=== PATIENT | female | born 1980 | race Caucasian/White ===

== ENCOUNTER 2017-12-19 14:51 | Emergency (ER) | payer BC ==
--- NOTE | 2017-12-19 15:23 | Emergency Department Record ---
History of Present Illness - General Chief Complaint: Abdominal Pain Stated Complaint: HERNIA LT SIDE Time Seen by Provider: 12/19/17 15:10 Source: Patient, Family Mode of Arrival: Ambulatory Limitations: No limitations - History of Present Illness Initial Comments: 37 yo female presents with abdominal pain this is now resolved. She had a midline mass that she identifies as a hernia. She has had this occur a few times over the last 1.5 years. She has not been worked up or seen for this in the past. She has had a partial hysterectomy and cholecystectomy in the past. No vomiting. No fever. MD Complaint: Abdominal pain Onset/Timin -: Hour(s) Location: LLQ Radiation: None Migration to: No migration Severity: Mild Consistency: Constant Improves With: Other Worsens With: Movement Associated Symptoms: Denies other symptoms - Related Data LMP (females 10-50): other Patient : No Home Medications Medication Instructions Recorded Confirmed Last Taken Multivitamin [Multi-Vitamin Daily] 1 each PO DAILY 12/19/17 12/19/17 12/19/17 Allergies Allergy/AdvReac Type Severity Reaction Status Date / Time No Known Drug Allergies Allergy Verified 12/19/17 15:01 Travel Screening - Travel/Exposure Within Last 30 Days Have you traveled within the last 30 days?: No Review of Systems Constitutional: Denies: Chills, Fever, Malaise, Weakness Eyes: Denies: Eye discharge ENT: Denies: Congestion, Throat pain Respiratory: Denies: Cough Cardiovascular: Denies: Chest pain, Palpitations, Syncope Endocrine: Denies: Fatigue Gastrointestinal: Reports: Abdominal pain. Denies: Diarrhea, Nausea, Vomiting Genitourinary: Denies: Dysuria, Urgency Musculoskeletal: Denies: Arthralgia, Back pain, Myalgia Skin: Denies: Bruising, Change in color, Rash Neurological: Denies: Headache, Numbness, Weakness Psychiatric: Denies: Anxiety Hematological/Lymphatic: Denies: Easy bleeding, Easy bruising, Swollen glands Past Medical History - SOCIAL HISTORY Smoking Status: Light tobacco smoker (<10/day) Alcohol Use: None Drug Use: None - RESPIRATORY Hx Respiratory Disorders: No - CARDIOVASCULAR Hx Cardio Disorders: No - NEURO Hx Neuro Disorders: No - GI Hx GI Disorders: No - Hx Genitourinary Disorders: No - ENDOCRINE Hx Endocrine Disorders: No - MUSCULOSKELETAL Hx Musculoskeletal Disorders: No - PSYCH Hx Psych Problems: No - HEMATOLOGY/ONCOLOGY Hx Hematology/Oncology Disorders: No Family Medical History Any Significant Family History?: Yes Hx Diabetes: Father, Grandparents Hx HTN: Mother Physical Exam - General General Appearance: Alert, Oriented x3, Cooperative, No acute distress Limitations: No limitations - Head Head exam: Normal inspection - Eye Eye exam: Normal appearance - ENT ENT exam: Normal exam Ear exam: Normal external inspection Nasal Exam: Normal inspection Mouth exam: Normal external inspection - Neck Neck exam: Normal inspection, Full ROM. negative: Tenderness - Respiratory Respiratory exam: Normal lung sounds bilaterally. negative: Respiratory distress - Cardiovascular Cardiovascular Exam: Regular rate, Normal rhythm, Normal heart sounds - GI/Abdominal GI/Abdominal exam: Soft, Tenderness (mild midline tenderness). negative: Distended, Guarding, Hernia (No palpable hernia), Rebound, Rigid - Rectal Rectal exam: Deferred - exam: Deferred - Extremities Extremities exam: Normal inspection - Back Back exam: Denies: CVA tenderness (R), CVA tenderness (L) - Neurological Neurological exam: Alert, Oriented X3 - Psychiatric Psychiatric exam: Normal affect, Normal mood - Skin Skin exam: Dry, Intact, Normal color, Warm Course Vital Signs 12/19/17 15:03 Temperature 98.2 F Pulse Rate 86 Respiratory 20 Rate Blood Pressure 126/68 Pulse Ox 99 - Reevaluation(s) Reevaluation #1: The CMP was reviewed No acute changes 12/19/17 16:07 CBC with WBC count of 14 UA is negative 12/19/17 16:49 The patient has returned from CT 12/19/17 17:[address] was reviewed. NO hernia. Small ovarian cysts that will need follow up US and adrenal nodules. The patient was informed of the need to for follow up Medical Decision Making - Lab Data Result diagrams: 12/19/17 15:20 12/19/17 15:20 Disposition Disposition: Discharge Clinical Impression: Hernia Disposition: Home, Self-Care Condition: (1) Good Instructions: Abdominal Pain (ED), Ventral Hernia (ED) Additional Instructions: Call for close follow up with Dr Boston You have been referred to the specialty surgery clinic Return if you have any abdominal pain that does not go away in less than 30 minutes Return if you have a hernia you can not press back in place. Follow up the CT scan results with your doctor. You will need to have the ovarian cysts rechecked and the adrenal gland nodules. Referrals: Addi Boston [DOCTOR OF OSTEOPATH] - [facility] [Provider Group] Forms: Patient Portal Access Time of Disposition: 17:20 Quality - Quality Measures Quality Measures: N/A - Blood Pressure Screening Does Patient Have Any of the Following: No Blood Pressure Classification: Pre-Hypertensive BP Reading Systolic Measurement: 126 Diastolic Measurement: 68 Screening for High Blood Pressure: < Pre-Hypertensive BP, F/U Documented > [ G8950] Pre-Hypertensive Follow-up Interventions: Referral to alternative/primary care provider.
[2017-12-19 15:42] LABS: HCG,QUALITATIVE URINE NEGATIVE (NEGATIVE)
[2017-12-19 15:44] LABS: BLOOD UREA NITROGEN 10 mg/dL (6-20); CREATININE 0.7 mg/dL (0.5-0.9); EST GLOMERULAR FILTRATION RATE > 60 mL/min
[2017-12-19 15:45] LABS: TOTAL PROTEIN 7.4 g/dL (6.6-8.7); URINE APPEARANCE CLEAR; URINE BILIRUBIN NEGATIVE (NEGATIVE); URINE BLOOD NEGATIVE (NEGATIVE); URINE COLOR YELLOW; URINE GLUCOSE (UA) NEGATIVE (NEGATIVE); URINE KETONE NEGATIVE (NEGATIVE); URINE LEUKOCYTE ESTERASE NEGATIVE (NEGATIVE); URINE NITRITE NEGATIVE (NEGATIVE); URINE PROTEIN NEGATIVE (NEGATIVE); URINE UROBILINOGEN 0.2 E.U./dL (0.20 - 1.00)
[2017-12-19 15:47] LABS: GLUCOSE,RANDOM 104 mg/dL (74-109)
[2017-12-19 15:48] LABS: BASO % 0.2 % (0-6); EOS % 1.1 % (0-6); GRAN % 73.2 % (47-80); HEMATOCRIT 43.8 % (35.0-47.0); HEMOGLOBIN 14.2 gm/dl (11.6-16.0); LYMPH % 18.1 % (16-45); MEAN CELL VOLUME 93.6 fl (81-97); MEAN CORPUSCULAR HEMOGLOBIN 30.3 pg (27-33); MEAN CORPUSCULAR HGB CONC 32.4 g/dl (32-36); MEAN PLATELET VOLUME 9.4 fl (7.4-10.4); MONO % 7.4 % (0-9); PLATELET COUNT 369 K/uL (130-400); RED BLOOD COUNT 4.68 M/uL (3.80-5.40); RED CELL DISTRIBUTION WIDTH 13.9 % (11.5-14.5)
[2017-12-19 15:49] LABS: ALB/GLOB RATIO 1.6 (1.1-1.8); ALBUMIN 4.5 g/dL (4.0-5.0); ALT/SGPT 19 U/L (<33); AST/SGOT 14 U/L (10.0-35.0)
[2017-12-19 15:50] LABS: ALKALINE PHOSPHATASE 90 U/L (35-104)
--- NOTE | 2017-12-20 13:02 | CT SCAN REPORT ---
EXAM: EMERGENCY CT OF THE ABDOMEN AND PELVIS HISTORY: LEFT SIDED HERNIA, UNABLE TO SELF REDUCE. CHOLECYSTECTOMY. PARTIAL HYSTERECTOMY. TECHNIQUE: Axial CT scan of the abdomen and pelvis was performed following both oral and IV contrast administration, utilizing a dose of 100 ml of Omnipaque 300 as the IV contrast. Comparison: CT of the abdomen and pelvis 03/26/14. FINDINGS: The gallbladder is not identified consistent with the surgical history, however, the uterus does appear to be present and correlation with the specifics of the history of prior partial hysterectomy is suggested. A single tiny low attenuation laterally in the right lobe of the liver was present previously as well. On the prior exam this appeared relatively rounded measuring only about 4 mm in diameter. On today's examination this appears more elongated measuring about 9 x 4 mm in size. This is still too small to accurately measure with CT density measurements. It is still felt to have a relatively benign appearance, but because of its apparent increased size since the prior study just under four years ago, perhaps a follow-up abdomen CT in six months time would be useful to confirm a stable appearance. No actual new hepatic mass evident. No definite splenic mass seen. There is a small right adrenal mass measuring about 8.7 mm in size. There is also a small left adrenal mass measuring about 7.8 mm in size. These are more obvious than before although may just represent small adrenal adenomas. These could also be reassessed with a follow-up abdomen CT in six months time or evaluated further currently with an MRI of the abdomen. No definite pancreatic or renal mass identified and no splenic mass evident. 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 This is not clearly seen today and correlation with any history of prior surgical resection is suggested. There do appear to be multiple low attenuation masses in the region of the left adnexal/left ovary which may represent multiple left ovarian cysts, the largest is approximately 3.8 cm in diameter. Follow-up pelvic ultrasound in about six weeks time may be useful to see if these spontaneously regress. Oral contrast given has passed throughout the small bowel into the proximal colon with no small bowel obstruction evident. No appendicitis evident. There is a small periumbilical anterior abdominal wall hernia containing adipose tissue, but no bowel. No free intraperitoneal air or free intraperitoneal fluid identified. There is a prominent spur posteriorly at the T11-T12 interspace probably representing some calcification of the annulus. This may be impinging on the anterior aspect of the lower thoracic cord. This was present previously as well. IMPRESSION: 1. POSTOP CHOLECYSTECTOMY. 2. SMALL BILATERAL ADRENAL NODULES AND A SMALL, BUT ENLARGED SINGLE LOW ATTENUATION MASS RIGHT LOBE OF THE LIVER DESCRIBED ABOVE. FOLLOW-UP MRI OF THE ABDOMEN MAY BE USEFUL. 3. SMALL PERIUMBILICAL ANTERIOR ABDOMINAL WALL HERNIA CONTAINING ADIPOSE TISSUE , BUT NO BOWEL. 4. PREVIOUSLY SEEN POSTERIOR PELVIC DERMOID NO LONGER CLEARLY IDENTIFIED, BUT THERE DO APPEAR TO BE MULTIPLE LOW ATTENUATION MASSES IN THE LEFT ADNEXA, THE LARGEST IS ABOUT 3.8 CM IN SIZE PRESUMABLY REPRESENTING MULTIPLE LEFT OVARIAN CYSTS. SHORT TERM FOLLOW-UP PELVIC ULTRASOUND MAY BE USEFUL. 5. PROMINENT CALCIFICATION POSTERIORLY AT THE T11-T12 INTERSPACE ALSO PRESENT BACK ON 03/26/14, MAY BE IMPINGING ON THE ANTERIOR ASPECT OF THE LOWER THORACIC CORD. JOB NUMBER: [id number] [facility]
== END 2017-12-19 17:37 | disposition home or self-care (01) ==
LOC: ER 14:51
DX: K42.9 Umbilical hernia without obstruction or gangrene (principal); N83.202 Unspecified ovarian cyst, left side; F17.210 Nicotine dependence, cigarettes, uncomplicated
CPT/HCPCS: 99283; 99284; 85025; 80053; 81003; 81025; 74177; Q9967

== ENCOUNTER 2018-09-01 03:17 | Emergency (ER) | payer BC ==
--- NOTE | 2018-09-01 03:34 | Emergency Department Record ---
History of Present Illness - General Chief complaint: ENT Stated complaint: SORE THROAT Time Seen by Provider: 09/01/18 03:27 Source: Patient Mode of Arrival: Ambulatory Limitations: No limitations - History of Present Illness Initial comments: 37 yo female presents with white patches on the tongue this week onset was Tuesday. The tongue is sensitive. She denies pain with swallowing. No recent antibiotics. She has used an inhaler in the last week or two. MD complaint: Other Onset/Timin -: Days(s) Location: Tongue Severity: Moderate Quality: Aching Consistency: Constant Improves with: None Worsens with: Eating - Related Data Previous Rx's Medication Instructions Recorded Nystatin 100,000 unit PO QID #280 oral.susp 09/01/18 Allergies Allergy/AdvReac Type Severity Reaction Status Date / Time No Known Drug Allergies Allergy Verified 12/19/17 15:01 Travel Screening - Travel/Exposure Within Last 30 Days Have you traveled within the last 30 days?: No Review of Systems Constitutional: Denies: Chills, Fever, Malaise, Weakness Eyes: Denies: Eye discharge ENT: Reports: Other. Denies: Congestion, Dental pain Respiratory: Denies: Cough, Dyspnea Cardiovascular: Denies: Chest pain, Syncope Endocrine: Denies: Fatigue Gastrointestinal: Denies: Abdominal pain, Diarrhea, Nausea, Vomiting Genitourinary: Denies: Dysuria Musculoskeletal: Denies: Arthralgia, Myalgia Skin: Denies: Bruising, Change in color, Rash Neurological: Denies: Confusion Psychiatric: Denies: Anxiety Hematological/Lymphatic: Denies: Easy bleeding, Easy bruising Past Medical History - SOCIAL HISTORY Smoking Status: Current some day smoker Alcohol Use: Rare Drug Use: None - RESPIRATORY Hx Respiratory Disorders: No - CARDIOVASCULAR Hx Cardio Disorders: No - NEURO Hx Neuro Disorders: No - GI Hx GI Disorders: No - Hx Genitourinary Disorders: No - ENDOCRINE Hx Endocrine Disorders: No - MUSCULOSKELETAL Hx Musculoskeletal Disorders: No - PSYCH Hx Psych Problems: No - HEMATOLOGY/ONCOLOGY Hx Hematology/Oncology Disorders: No Family Medical History Any Significant Family History?: Yes Hx Diabetes: Father, Grandparents Hx HTN: Mother Physical Exam - General General Appearance: Alert Limitations: No limitations - Head Head exam: Atraumatic - Eye Eye exam: Normal appearance. negative: Conjunctival injection - ENT ENT exam: Normal exam, Mucous membranes moist Ear exam: Normal external inspection Nasal Exam: Normal inspection Mouth exam: Normal external inspection. negative: Tongue normal Teeth exam: Normal inspection Throat exam: Normal inspection. negative: Tonsillar erythema, Tonsillomegaly, Tonsillar exudate, R peritonsillar mass, L peritonsillar mass Image of Mouth/Teeth: 1 - white thick coating, posterior tongue, remainder of the tongue mild erythema, no swelling, posterior pharynx is clear - Neck Neck exam: Normal inspection - Respiratory Respiratory exam: Normal lung sounds bilaterally. negative: Respiratory distress, Rhonchi, Stridor, Wheezes - Cardiovascular Cardiovascular Exam: Regular rate, Normal rhythm, Normal heart sounds - Neurological Neurological exam: Alert, Oriented X3 - Psychiatric Psychiatric exam: Normal affect, Normal mood - Skin Skin exam: Dry, Intact, Normal color, Warm Course Vital Signs 09/01/18 03:23 Temperature 98.4 F Pulse Rate [ 69 Pulse Ox Probe] Respiratory 20 Rate Blood Pressure 145/72 [Left Arm] Pulse Ox 99 - Reevaluation(s) Reevaluation #1: 09/01/18 03:57 The examination is consistent with thrush at this time I discussed home care and treatment I recommended close follow up with her PCP to discuss this diagnosis and discuss if any further work up of immune issue is warranted Disposition Disposition: Discharge Clinical Impression: Thrush, oral Disposition: Home, Self-Care Condition: (1) Good Instructions: Oral Candidiasis (ED) Additional Instructions: Call your doctor for close follow up Return or be seen if worse, swelling, fever or concerns Prescriptions: Nystatin 100,000 unit PO QID #280 oral.susp Forms: Patient Portal Access Time of Disposition: 03:45 Quality - Quality Measures Quality Measures: N/A - Blood Pressure Screening Does Patient Have Any of the Following: No Blood Pressure Classification: Hypertensive Reading Systolic Measurement: 145 Diastolic Measurement: 72 Screening for High Blood Pressure: < Pre-Hypertensive BP, F/U Documented > [ G8950] Pre-Hypertensive Follow-up Interventions: Referral to alternative/primary care provider.
[2018-09-01] MEDS ORDERED: NYSTATIN 100,000 UNITS/ML 5ML CUP PO ONE (03:38)
== END 2018-09-01 03:55 | disposition home or self-care (01) ==
LOC: ER 03:17
DX: B37.0 Candidal stomatitis (principal); F17.210 Nicotine dependence, cigarettes, uncomplicated
CPT/HCPCS: 99282